=== PATIENT | female | born 1985 | race Caucasian/White ===

== ENCOUNTER 2020-07-18 09:26 | Emergency (ER) | payer SELFPAY ==
[~2020-07-18] VITALS: Ht 165.1 cm; Wt 84.4 kg
[2020-07-18 09:28] VITALS: BP 147/81
--- NOTE | 2020-07-18 09:40 | NUR ---
PATIENT AMBULATED TO BED 12.
--- NOTE | 2020-07-18 09:48 | NUR ---
35 Y/O F BIB SELF FROM HOME, PATIENT PRESENTS TO ED WITH ABD PAIN THAT RADIATES TO BILATERAL FLANK AREAS FOR 1 WEEK. 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 DENIES BLEEDING, ITCHING OR VAGINAL DISCHARGE. PT STATES SHES HAD KIDNEY INFECTIONS IN THE PAST. DENIES CONSTIPATION AND DIARRHEA. LUNG BASES CLEAR AND RISE AND FALL OF CHEST SYMMETRICAL. HEART RATE EVEN AND STEADY. PT ABLE TO AMBULATE, A&OX4. DENIES SOB, COUGH, CHEST PAIN, FEVERS AND CHILLS. PMH: HYPOGLYCEMIC, SCOLIOSIS, KIDNEY INFECTION PENICILLIN, RISPERIDONE, AMOXICILLIN (HIVES AND SOB)
[2020-07-18 10:27] LABS: BASOPHILS # (AUTO) 0.1 K/uL (0.00-0.22); BASOPHILS % (AUTO) 0.8 % (0.0-2.0); EOSINOPHILS # (AUTO) 0.5 K/uL (0-0.4); EOSINOPHILS % (AUTO) 3.7 % (0.0-4.0); HEMATOCRIT 39.4 % (36-48); HEMOGLOBIN 13.2 g/dL (12.0-16.0); LYMPHOCYTES % (AUTO) 24.6 % (20.5-51.1); MEAN CORPUSCULAR HEMOGLOBIN 29 pg (27-31); MEAN CORPUSCULAR HGB CONC 34 g/dL (33-37); MEAN CORPUSCULAR VOLUME 87.5 fL (80-94); MONOCYTES # (AUTO) 0.9 K/uL (0.8-1.0); MONOCYTES % (AUTO) 7.3 % (1.7-9.3); NEUTROPHILS # (AUTO) 7.8 K/uL (1.8-7.7); NEUTROPHILS % (AUTO) 63.6 % (42.2-75.2); PLATELET COUNT (AUTO) 173 K/uL (140-450); RED BLOOD CELL COUNT(AUTO) 4.51 MIL/uL (4.20-5.40); RED CELL DISTRIBUTION WIDTH 13.3 % (11.6-13.7); WHITE BLOOD COUNT (AUTO) 12.3 K/uL (4.8-10.8)
[2020-07-18 10:52] LABS: ALBUMIN 4.5 g/dL (3.4-5.0); ANION GAP 11.8 (8-16); CARBON DIOXIDE 28.2 mmol/L (21-32); CREATININE 0.8 mg/dL (0.6-1.3); TOTAL BILIRUBIN 0.5 mg/dL (0.0-1.0)
[2020-07-18] MEDS ORDERED: CIPR500T4 PO (11:31)
[2020-07-18 11:44] VITALS: BP 147/81
--- NOTE | 2020-07-18 11:44 | NUR ---
Patient discharged with v/s stable. Written and verbal after care instructions given and explained. Patient alert, oriented and verbalized understanding of instructions. Ambulatory with steady gait. All questions addressed prior to discharge. ID band removed. Patient advised to follow up with PMD. Rx of CIPROFLOXACIN given. Patient educated on indication of medication including possible reaction and side effects. Opportunity to ask questions provided and answered.
== END 2020-07-18 11:44 | disposition home or self-care (01) ==
LOC: MED 09:26
DX: N39.0 Urinary tract infection, site not specified (principal); F41.9 Anxiety disorder, unspecified; Z88.0 Allergy status to penicillin; Z88.8 Allergy status to other drugs, medicaments and biological substances; Z79.899 Other long term (current) drug therapy
CPT/HCPCS: 36415; 80053; 81002; 83690; 84702; 85025; 99283